=== PATIENT | male | born 1950 | race Caucasian/White ===

== ENCOUNTER → 2017-03-07 | Outpatient (CLI) | payer OTHER | LOC: FIMAGING 08:52 | PROVIDERS: ATTEND Internal Medicine | DX: Z13.820 Encounter for screening for osteoporosis (principal); Z82.62 Family history of osteoporosis ==

== ENCOUNTER 2018-04-17 17:42 | Emergency (ER) | payer OTHER ==
[2018-04-17] MEDS ORDERED: TDAP ADULT 0.5 ML INJ (BOOSTRIX) IM ONE (19:33)
--- NOTE | 2018-04-17 19:35 | EDPHY ---
H & P Smoking Status: Never smoked Time Seen by Provider: 04/17/18 18:17 HPI/ROS: CHIEF COMPLAINT: Right finger laceration HISTORY OF PRESENT ILLNESS: 68-year-old male presents to the emergency department with laceration to his right ring finger. The patient cut his finger on a broken piece of porcelain. The incident was at home just prior to arrival. He is right-hand dominant. Denies any other trauma or injury. The patient is unsure of his last tetanus shot. ROS: Denies numbness or tingling in his fingers, retained foreign body. (Fay Causey) Past Medical/Surgical History: Hypertension, inguinal hernia repair (Jane Causeya Liana) Social History: (Fay Causey) Physical Exam: On examination the patient has a 3 cm laceration to the dorsal aspect of the right 4th finger overlying the PIP joint. He has full range of motion of his finger. He has partial extensor tendon laceration. The other fingers are not injured. Normal sensation to light touch with normal 2 point discrimination. ( Fay Causey) Constitutional: Initial Vital Signs Temperature (C) 36.6 C 04/17/18 18:10 Heart Rate 67 04/17/18 18:10 Respiratory Rate 18 04/17/18 18:10 Blood Pressure 151/83 H 04/17/18 18:10 O2 Sat (%) 94 04/17/18 18:10 O2 Delivery Mode Room Air Allergies/Adverse Reactions: Penicillins Allergy (Verified 04/17/18 18:15) Home Medications: Medication Instructions Recorded Cephalexin [Keflex] 500 mg PO QID #28 cap 04/17/18 Losartan-Hctz 100-25 mg Tab 04/17/18 MDM/Departure - MDM Procedures: Laceration repair. Verbal consent was obtained from the patient. The 3 cm laceration on the right 4th finger was anesthetized using digital block using 1% lidocaine without epinephrine. The wound was irrigated with saline, draped and explored to its base with a gloved finger. Partial laceration to the extensor tendon noted. The wound was repaired with 4 0 Ethilon, 10 sutures. The wound repair was complex. The procedure was performed by myself. (Jane Causeya Liana) Medications Given: Discontinued Medications Diphtheria/Tetanus/Acell Pertussis (Boostrix) 0.5 ml IM .ONCE ONE Stop: 04/17/18 19:34 Last Admin: 04/17/18 19:41 Dose: 0.5 ml ED Course/Re-evaluation: 68-year-old male presents to the emergency department with laceration to his right ring finger. Evidence of partial extensor tendon laceration. The wound was repaired. Patient will be treated with oral Keflex and will follow up with orthopedic hand surgeon. (ElenjasFay Gaines) - Depart Disposition: Home, Routine, Self-Care Clinical Impression: Laceration of right middle finger Qualifiers: Encounter type: initial encounter Damage to nail status: without damage Foreign body presence: without foreign body Qualified Code(s): S61.212A - Laceration without foreign body of right middle finger without damage to nail, initial encounter Condition: Good Instructions: Care For Your Stitches (ED), Laceration (ED), Acute Wounds (ED) Additional Instructions: Wound Care Follow-Up: Removal of sutures in 10 days. Suture removal is complimentary in uncomplicated cases. Infection or abnormal findings would require reevaluation by the MD. In that case, you may be billed. You have evidence of a partial extensor tendon laceration of your right middle finger. Your skin has been closed. Keep the dressing and splint on until follow-up with orthopedic hand surgeon in 48 hr. Keflex 500 mg 4 times daily for 1 week to prevent infection. Return to the emergency department sooner if he notices any signs or symptoms of infection such as redness, swelling, increased pain, fever, purulent drainage. Prescriptions: Cephalexin [Keflex] 500 mg PO QID #28 cap Referrals: Joselin Loo MD [Primary Care Provider] - As per Instructions Chandni Laurent MD [Medical Doctor] - 1-2 days without fail (Orthopedic hand surgeon on-call)
[2018-04-17 19:51] VITALS: BP 146/91
== END 2018-04-17 19:50 | disposition home or self-care (01) ==
PROC: 0HQFXZZ Repair Right Hand Skin, External Approach (ICD-10-PCS; principal; 2018-04-17)
DX: S61.212A Laceration without foreign body of right middle finger without damage to nail, initial encounter (principal); I10 Essential (primary) hypertension; Z23 Encounter for immunization; W26.8XXA Contact with other sharp object(s), not elsewhere classified, initial encounter; Y92.009 Unspecified place in unspecified non-institutional (private) residence as the place of occurrence of the external cause
CPT/HCPCS: L3925

== ENCOUNTER → 2019-02-18 | Outpatient (CLI) | payer OTHER | LOC: FIMAGING 07:54 | PROVIDERS: ATTEND Physician Assistant | DX: M48.061 Spinal stenosis, lumbar region without neurogenic claudication (principal) ==